=== PATIENT | male | born 1985 | race Caucasian/White ===

== ENCOUNTER 2020-04-19 05:09 | Emergency (ER) | payer OTHER ==
[2020-04-19 05:48] LABS: ACETAMINOPHEN <2.0 ug/mL; BLOOD UREA NITROGEN,BUN 11 mg/dL (7.0-18.0); CARBON DIOXIDE,CO2 29.3 mmol/L (21.0-32.0); CHLORIDE,CL 102 mmol/L (98-107); GLUCOSE RANDOM 100 mg/dL (74-106); POTASSIUM,K 3.9 mmol/L (3.5-5.1); SODIUM,NA 142 mmol/L (136-148)
--- NOTE | 2020-04-19 05:53 | CR ---
INDICATION: Trauma COMPARISON: None TECHNIQUE: Single-view chest radiograph obtained is an AP upright study FINDINGS: TUBES AND LINES: None. HEART AND MEDIASTINUM: The heart size is normal. The mediastinal contour appears normal for patient age. LUNGS AND PLEURAL SPACES: The lungs appear normal.The pleural spaces are unremarkable. OSSEOUS STRUCTURES: Age-appropriate appearance. No acute focal finding. IMPRESSION: No evidence of active pulmonary disease. Dictated by Filemon Azevedo MD @ Apr 19 2020 5:50AM Signed by Dr. Filemon Azevedo @ Apr 19 2020 5:50AM
--- NOTE | 2020-04-19 05:53 | CR ---
Indication: Trauma Technique: A single view of the pelvis was acquired Comparison: None Findings: Bones: Alignment is normal. No fractures or bone lesions. Joint spaces: Unremarkable. Soft tissues: Unremarkable. Impression: Normal exam Dictated by Filemon Azevedo MD @ Apr 19 2020 5:51AM Signed by Dr. Filemon Azevedo @ Apr 19 2020 5:52AM
[2020-04-19] MEDS ORDERED: Sodium Chloride 0.9% 1,000 ML IV ONE ×2 (05:56)
--- NOTE | 2020-04-19 06:09 | CT ---
INDICATION: HISTORY COMPARISON: None TECHNIQUE: CT examination of the head was performed as axial sections without intravenous contrast. Images were obtained from the vertex of the skull through the skull base. Please note that all CT scans at this facility use dose modulation, iterative reconstruction, and/or weight-based dosing when appropriate to reduce radiation dose to as low as reasonably achievable. FINDINGS: The study is globally limited by motion. The brain shows no sign of mass lesion, mass effect, hemorrhage, or edema. The ventricles and sulci are normal in appearance for the patient`s age. The visualized portions of the orbits are normal in appearance. There is a low-density mass, that appears to be making bone, in the right aspect of the nasal cavity. This measures about 3.9 centimeters and will require formal evaluation at a clinically appropriate time IMPRESSION: 1. Limited by motion. However, I see no acute post traumatic findings. 2. There is a mass in the nasal cavity on the right measuring about 3.9 centimeters. This will require formal evaluation at a clinically appropriate time Please note that all CT scans at this facility use dose modulation, iterative reconstruction, and/or weight-based dosing when appropriate to reduce radiation dose to as low as reasonably achievable. Dictated by Filemon Azevedo MD @ Apr 19 2020 5:58AM Signed by Dr. Filemon Azevedo @ Apr 19 2020 6:09AM
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
--- NOTE | 2020-04-19 06:17 | CT ---
INDICATION: Trauma COMPARISON: None TECHNIQUE: CT examination of the cervical spine is performed without contrast using spiral technique. Thin axial, sagittal and coronal reconstructions were made. Please note that all CT scans at this facility use dose modulation, iterative reconstruction, and/or weight-based dosing when appropriate to reduce radiation dose to as low as reasonably achievable. FINDINGS: : There is mild straightening which is probably due to muscle spasm or positioning. There are minor degenerative changes. There is no visible acute fracture, dislocation or destructive process apparent IMPRESSION: Straining. Degenerative changes. No visible acute fracture, dislocation or destructive process. Please note that all CT scans at this facility use dose modulation, iterative reconstruction, and/or weight-based dosing when appropriate to reduce radiation dose to as low as reasonably achievable. Dictated by Filemon Azevedo MD @ Apr 19 2020 5:48AM Signed by Dr. Filemon Azevedo @ Apr 19 2020 6:16AM
[2020-04-19] MEDS ORDERED: Sodium Chloride 0.9% 1,000 ML IV SCH (07:30)
== END 2020-04-19 09:15 | disposition home or self-care (01) ==
LOC: MW.ED 05:09
DX: T68.XXXA Hypothermia, initial encounter (principal); G93.40 Encephalopathy, unspecified; M62.82 Rhabdomyolysis; F10.129 Alcohol abuse with intoxication, unspecified
CPT/HCPCS: 36415; 70450; 71045; 72125; 72170; 80053; 80307; 82550; 85025; 85610; 93005; 99285; J7030; 93010; 99283

== ENCOUNTER 2022-01-19 16:50 | Emergency (ER) | payer SELFPAY | END 2022-01-19 18:01 | disposition home or self-care (01) | LOC: MW.ED 16:50 | DX: U07.1 COVID-19 (principal) | CPT/HCPCS: 71045; 71045-26; 93005; 93010; 99283; 99285; U0002 ==